=== PATIENT | male | born 1995 | race Caucasian/White ===

== ENCOUNTER 2019-10-18 09:48 | Emergency (ER) | payer OTHER ==
[2019-10-18 09:58] VITALS: RESP 18
[2019-10-18] MEDS ORDERED: KETOROLAC 30 MG/ML 1 ML VIAL IM STA (10:17)
--- NOTE | 2019-10-18 10:20 | ED ---
General Adult HPI - General Chief complaint: Extremity Injury, Upper Stated complaint: shoulder pain Time Seen by Provider: 10/18/19 10:00 Source: patient, EMS, RN notes reviewed Mode of arrival: EMS Limitations: no limitations - History of Present Illness Initial comments: 24-year-old male presents to the emergency department for a chief complaint of l eft shoulder pain. Patient states that about 2 days ago he was lifting heavy boxes at work and noticed the pain in his left shoulder. States that yesterday he started having pain radiating from his left shoulder to his left anterior chest. Rates pain starts in the shoulder and then radiates to the chest. States it hurts more when he moves his arm in a certain way. Patient is unable to characterize the pain. Patient denies any shortness of breath, nausea vomiting, diaphoresis associated with this. Denies any history of hypertension or high cholesterol.Patient has no other complaints at this time including shortness of breath,abdominal pain, nausea or vomiting, headache, or visual changes. - Related Data Home Medications Medication Instructions Recorded Confirmed No Known Home Medications 10/18/19 10/18/19 Allergies Allergy/AdvReac Type Severity Reaction Status Date / Time No Known Allergies Allergy Verified 10/18/19 11:16 Review of Systems ROS Statement: Those systems with pertinent positive or pertinent negative responses have been documented in the HPI. ROS Other: All systems not noted in ROS Statement are negative. Past Medical History Past Medical History: Osteoarthritis (OA) History of Any Multi-Drug Resistant Organisms: None Reported Past Surgical History: Orthopedic Surgery Additional Past Surgical History / Comment(s): R arm Past Psychological History: Anxiety, Depression Smoking Status: Current every day smoker Past Alcohol Use History: None Reported Past Drug Use History: None Reported General Exam Limitations: no limitations General appearance: alert, in no apparent distress Head exam: Present: atraumatic, normocephalic, normal inspection Eye exam: Present: normal appearance, PERRL, EOMI. Absent: scleral icterus, conjunctival injection, periorbital swelling ENT exam: Present: normal exam, mucous membranes moist Neck exam: Present: normal inspection, full ROM. Absent: tenderness, meningismus, lymphadenopathy Respiratory exam: Present: normal lung sounds bilaterally, chest wall tenderness (Patient has tenderness to the left anterior chest wall). Absent: respiratory distress, wheezes, rales, rhonchi, stridor Cardiovascular Exam: Present: regular rate, normal rhythm, normal heart sounds. Absent: systolic murmur, diastolic murmur, rubs, gallop, clicks GI/Abdominal exam: Present: soft, normal bowel sounds. Absent: distended, tenderness, guarding, rebound, rigid Extremities exam: Present: full ROM (Patient has full range of motion of the shoulder but has increased pain with extension and abduction of the shoulder), n ormal capillary refill (Capillary refill less than 2 seconds, radial pulse 2+.), other (Sensation intact in the left upper extremity. Skin exam is normal.). Absent: joint swelling Course Vital Signs 10/18/19 09:54 Temperature 97.9 F Pulse Rate 72 Respiratory 18 Rate Blood Pressure 140/93 O2 Sat by Pulse 99 Oximetry EKG Findings - EKG Comments: EKG Findings:: Normal sinus rhythm, ventricular rate 63, AL interval 130, QRS 102, QTc 413 Medical Decision Making - Medical Decision Making HPI and physical exam as documented. Vitals are stable. Patient mildly hypertensive likely secondary to pain. X-ray of the left shoulder shows no fracture or dislocation. X-ray of the chest shows no acute cardiopulmonary process. EKG is unremarkable. There is evidence for normal sinus rhythm. Given patient's pain worsening with movement of the left shoulder and tenderness of the anterior left chest he likely has a strain of the pectoralis muscle. Patient was given Toradol and did have significant improvement in symptoms. Case was discussed with Dr. Davis. At this time we feel it is appropriate for patient to follow up outpatient return if he has any worsening symptoms. Disposition Clinical Impression: Strain of left pectoralis muscle Disposition: HOME SELF-CARE Condition: Good Instructions (If sedation given, give patient instructions): Muscle Strain (ED) Additional Instructions: Take Motrin and Tylenol for pain. Do gentle stretching. Follow up with primary care in 1-2 days. Return to the emergency department if you have any worsening symptoms. Is patient prescribed a controlled substance at d/c from ED?: No Referrals: Nonstaff,Physician [Primary Care Provider] - 1-2 days Time of Disposition: 11:40
--- NOTE | 2019-10-18 11:03 | XR ---
EXAMINATION TYPE: XR chest 2V DATE OF EXAM: 10/18/2019 COMPARISON: NONE HISTORY: Chest pain TECHNIQUE: Frontal and lateral views of the chest are obtained. FINDINGS: There is no focal air space opacity. No evidence for pneumothorax. No pleural effusion. The cardiac silhouette size is within normal limits. The osseous structures are grossly intact. IMPRESSION: 1. No acute cardiopulmonary process.
--- NOTE | 2019-10-18 11:03 | XR ---
EXAMINATION TYPE: XR shoulder complete LT DATE OF EXAM: 10/18/2019 CLINICAL HISTORY: pain COMPARISON: NONE TECHNIQUE: Three views of the left shoulder are obtained. FINDINGS: There is no acute fracture/dislocation evident. The acromioclavicular and glenohumeral bessie int spaces appear within normal limits. The visualized ribs are intact and unremarkable. IMPRESSION: 1. There is no acute fracture or dislocation. ICD 10 NO FRACTURE, INITIAL EVALUATION
[2019-10-18 11:58] VITALS: BP 129/85; PULSE 63; TEMP 98
== END 2019-10-18 11:59 | disposition home or self-care (01) ==
LOC: EC 09:48
DX: S29.011A Strain of muscle and tendon of front wall of thorax, initial encounter (principal); I10 Essential (primary) hypertension; M25.512 Pain in left shoulder; F17.200 Nicotine dependence, unspecified, uncomplicated; X50.0XXA Overexertion from strenuous movement or load, initial encounter; Y92.69 Other specified industrial and construction area as the place of occurrence of the external cause
CPT/HCPCS: 93005; 73030; 71046; 99284; 96372; J1885